=== PATIENT | male | born 1985 | race Caucasian/White ===

== ENCOUNTER 2019-05-26 20:19 | Emergency (ER) | payer BC ==
[2019-05-26] MEDS ORDERED: Ciprofloxacin 500 MG Tab PO ONE (20:20)
[2019-05-26] MEDS ORDERED: Acetaminophen/HYDROcodone 325-5 MG Tab PO ONE (20:20)
[2019-05-26] MEDS ORDERED: cefTRIAXone 1 GM Vial ONE (20:54)
[2019-05-26] MEDS ORDERED: Diphtheria,Pertussis(Acell),Tetanus Vaccine 0.5 ML Syringe ONE (20:57)
[2019-05-26] MEDS ORDERED: Diphtheria,Pertussis(Acell),Tetanus Vaccine 0.5 ML Syringe IM ONE (21:05)
[2019-05-26] MEDS ORDERED: cefTRIAXone 1 GM Vial IM ONE (21:05)
[2019-05-26] MEDS ORDERED: Lidocaine 1% 20 ML MDV INJECT ONE (21:05)
[2019-05-26] MEDS ORDERED: Take Home: Ciprofloxacin 500 MG Tab, 2 Tab Pack PO ONE (21:09)
--- NOTE | 2019-05-26 21:12 | EDM.PDOC ---
ED HPI GENERAL MEDICAL PROBLEM - General Chief Complaint: General Stated Complaint: "I stepped on a nail" Time Seen by Provider: 05/26/19 20:55 Source of Information: Reports: Patient History Limitations: Reports: No Limitations - History of Present Illness INITIAL COMMENTS - FREE TEXT/NARRATIVE: Momo is a 33 yo male who presents to the ED via private vehicle with concerns of stepping on a nail. States he was wearing rubber soled shoes and it was a joan nail. States it went all the way into his foot but didn't come out the top. Was able to pull his foot away and the nail was intact. States he was able to walk to the house but the pain started to get a lot worse. States he is unable to bear weight now and had to use crutches to come into the ED. Unknown last Tetanus shot. - Related Data Allergies Allergy/AdvReac Type Severity Reaction Status Date / Time No Known Allergies Allergy Verified 05/26/19 20:49 Past Medical History Other Gastrointestinal History: Hx of Crohns - Past Surgical History GI Surgical History: Reports: Cholecystectomy Social & Family History - Tobacco Use Smoking Status *Q: Never Smoker Second Hand Smoke Exposure: No ED ROS GENERAL - Review of Systems Review Of Systems: ROS reveals no pertinent complaints other than HPI. Skin: Reports: Wound ED EXAM, GENERAL - Physical Exam Exam: See Below Exam Limited By: No Limitations General Appearance: Alert, No Apparent Distress Skin Exam: Wound/Incision (puncture wound to plantar and distal aspect of right foot between 4th and 5th metatarsals. ) Course - Orders/Labs/Meds Orders: Active Orders 24 hr Category Date Time Status Vaccines to be Administered [RC] PER UNIT ROUTINE Care 05/26/19 21:06 Ordered Foot Comp Min 3V Rt [CR] Stat Exams 05/26/19 21:05 Ordered Diphth,Pertuss(Acell),Tet Vac [Adacel] Med 05/26/19 21:05 Once 0.5 ml IM .ONCE ONE Lidocaine 1% [Xylocaine 1%] Med 05/26/19 21:05 Once 20 ml INJECT ONETIME ONE cefTRIAXone [Rocephin] Med 05/26/19 21:05 Once 1 gm IM ONETIME ONE Departure - Departure Time of Disposition: 21:54 Disposition: Home, Self-Care 01 Clinical Impression: Puncture wound of foot without foreign body Qualifiers: Encounter type: initial encounter Laterality: right Qualified Code(s): S91.331A - Puncture wound without foreign body, right foot, initial encounter - Discharge Information Instructions: Puncture Wound Additional Instructions: 1) Keep foot clean and dry for 48-72 hours, no soaking in tub. 2) Recommend applying triple antibiotic ointment to area and keep covered with bandage 3) Ciprofloxacin 500mg twice a day for 8 days. 4) Tetanus updated today 5) May bear weight as tolerated. 6) Tylenol 650-1000mg every 6 hours as needed, not to exceed 4000mg in a 24 hr period 7) Hydrocodone 5/325 - 1 tablet daily as needed, remember there is 325mg of Tylenol in each pill 8) May walk as tolerated. X-rays showed no fracture. 9) Follow up if any sign of infection or concerns, may call nurses station as well [phone] - Problem List & Annotations (1) Puncture wound of foot without foreign body SNOMED Code(s): 279619032 Code(s): S91.339A - PUNCTURE WOUND WITHOUT FOREIGN BODY, UNSP FOOT, INIT ENCNTR Status: Acute Qualifiers: Encounter type: initial encounter Laterality: right Qualified Code(s): S91.331A - Puncture wound without foreign body, right foot, initial encounter - My Orders Last 24 Hours: My Active Orders 05/26/19 21:05 Foot Comp Min 3V Rt [CR] Stat Diphth,Pertuss(Acell),Tet Vac [Adacel] 0.5 ml IM .ONCE ONE Lidocaine 1% [Xylocaine 1%] 20 ml INJECT ONETIME ONE cefTRIAXone [Rocephin] 1 gm IM ONETIME ONE 05/26/19 21:06 Vaccines to be Administered [RC] PER UNIT ROUTINE - Assessment/Plan Last 24 Hours: My Active Orders 05/26/19 21:05 Foot Comp Min 3V Rt [CR] Stat Diphth,Pertuss(Acell),Tet Vac [Adacel] 0.5 ml IM .ONCE ONE Lidocaine 1% [Xylocaine 1%] 20 ml INJECT ONETIME ONE cefTRIAXone [Rocephin] 1 gm IM ONETIME ONE 05/26/19 21:06 Vaccines to be Administered [RC] PER UNIT ROUTINE Plan: See additional instructions for treatment. X-rays reviewed and no fracture or foreign particulate noted.
[2019-05-26] MEDS ORDERED: Bacitracin/Neomycin/Polymyxin B Oint 0.9 GM U/D Packet TOP ONE (21:19)
[2019-05-26] MEDS ORDERED: Acetaminophen 500 MG Tab PO ONE (21:47)
[2019-05-26] MEDS ORDERED: Take Home: Acetaminophen/HYDROcodone 325-5 MG, 2 Tab Pack PO ONE (21:50)
== END 2019-05-26 22:00 | disposition home or self-care (01) ==
LOC: CC.ED 20:19
DX: S91.331A Puncture wound without foreign body, right foot, initial encounter (principal); W45.0XXA Nail entering through skin, initial encounter; Z23 Encounter for immunization
CPT/HCPCS: 73630; 90471; 90715; 96372; 99283; A9270; J0696; J2001